=== PATIENT | female | born 1935 | race Caucasian/White ===

== ENCOUNTER 2018-01-26 19:55 | Inpatient (IN) | payer MEDICARE, BC ==
[~2018-01-26] VITALS: Ht 165.1 cm; Wt 77.1 kg
[~2018-01-26 19:55] MED LIST: [UNRECOGNIZED DRUG - REMARK]
[2018-01-26] MEDS ORDERED: ASPIR 8181 MG ORAL (19:56)
[2018-01-26] MEDS ORDERED: CARVEDILOL3.125 MG ORAL (19:56)
[2018-01-26] MEDS ORDERED: DIOVAN80 MG ORAL (19:56)
[2018-01-26] MEDS ORDERED: FUROSEMIDE20 M1 ORAL (19:56)
[2018-01-26] MEDS ORDERED: Sodium Chloride 500ML 500 ML IV ONE (20:22)
[2018-01-26 20:42] LABS: BASOPHILS % (AUTO) 0.8 % (0.0-2.0); EOSINOPHILS % (AUTO) 1.5 % (0.0-3.0); HEMATOCRIT 35.4 % (37.0-47.0); HEMOGLOBIN 11.3 G/DL (12.0-16.0); MEAN CORPUSCULAR VOLUME 79 FL (80-99); MONOCYTES % (AUTO) 6.1 % (1.0-10.0); NEUTROPHILS % (AUTO) 49.5 % (45.0-75.0); PLATELET COUNT 233 K/UL (150-450); RED BLOOD COUNT 4.47 M/UL (4.20-5.40); WHITE BLOOD COUNT 9.3 K/UL (4.8-10.8)
[2018-01-26 20:47] VITALS: BP 159/68
[2018-01-26 20:52] LABS: ANION GAP 8 mmol/L (5-15); BLOOD UREA NITROGEN 15 mg/dL (7-18); CALCIUM 9.1 MG/DL (8.5-10.1); CARBON DIOXIDE 28 MMOL/L (21-32); CHLORIDE 102 MMOL/L (98-107); CREATININE 0.8 MG/DL (0.55-1.30); POTASSIUM 3.8 MMOL/L (3.5-5.1); SODIUM 138 MMOL/L (136-145)
[2018-01-26 21:05] LABS: ALANINE AMINOTRANSFERASE 21 U/L (12-78); ALBUMIN 3.9 G/DL (3.4-5.0); ALBUMIN/GLOBULIN RATIO 1.1 (1.0-2.7); ALKALINE PHOSPHATASE 86 U/L (46-116); ASPARTATE AMINO TRANSFERASE 20 U/L (15-37); BILIRUBIN,TOTAL 0.2 MG/DL (0.2-1.0); CKMB 1.3 NG/ML (0.0-3.6); CREATINE KINASE 68 U/L (26-308)
--- NOTE | 2018-01-26 21:32 | Cardiology Progress Note ---
Assessment/Plan Assessment/Plan ctca neg watch ovef ntei has soem pain on palaption may be ms related [id number] Objective Last 24 Hour Vital Signs Date Time Temp Pulse Resp B/P (MAP) Pulse Ox O2 Delivery O2 Flow Rate FiO2 01/26/18 20:47 63 18 159/68 98 Room Air 01/26/18 20:43 63 18 Room Air 01/26/18 19:50 98.3 78 18 160/98 99 Room Air 98.2 Laboratory Tests Test 01/26/18 20:23 White Blood Count 9.3 K/UL (4.8-10.8) Red Blood Count 4.47 M/UL (4.20-5.40) Hemoglobin 11.3 G/DL (12.0-16.0) L Hematocrit 35.4 % (37.0-47.0) L Mean Corpuscular Volume 79 FL (80-99) L Mean Corpuscular Hemoglobin 25.4 PG (27.0-31.0) L Mean Corpuscular Hemoglobin Concent 32.0 G/DL (32.0-36.0) Red Cell Distribution Width 14.0 % (11.6-14.8) Platelet Count 233 K/UL (150-450) Mean Platelet Volume 9.5 FL (6.5-10.1) Neutrophils (%) (Auto) 49.5 % (45.0-75.0) Lymphocytes (%) (Auto) 42.0 % (20.0-45.0) Monocytes (%) (Auto) 6.1 % (1.0-10.0) Eosinophils (%) (Auto) 1.5 % (0.0-3.0) Basophils (%) (Auto) 0.8 % (0.0-2.0) Sodium Level 138 MMOL/L (136-145) Potassium Level 3.8 MMOL/L (3.5-5.1) Chloride Level 102 MMOL/L (98-107) Carbon Dioxide Level 28 MMOL/L (21-32) Anion Gap 8 mmol/L (5-15) Blood Urea Nitrogen 15 mg/dL (7-18) Creatinine 0.8 MG/DL (0.55-1.30) Estimat Glomerular Filtration Rate mL/min (>60) Glucose Level 90 MG/DL (74-106) Calcium Level 9.1 MG/DL (8.5-10.1) Total Bilirubin 0.2 MG/DL (0.2-1.0) Aspartate Amino Transf (AST/SGOT) 20 U/L (15-37) Alanine Aminotransferase (ALT/SGPT) 21 U/L (12-78) Alkaline Phosphatase 86 U/L (46-116) Total Creatine Kinase 68 U/L (26-308) Creatine Kinase MB 1.3 NG/ML (0.0-3.6) Creatine Kinase MB Relative Index 1.9 Troponin I 0.003 ng/mL (0.000-0.056) Pro-B-Type Natriuretic Peptide 271 pg/mL (0-125) H Total Protein 7.5 G/DL (6.4-8.2) Albumin 3.9 G/DL (3.4-5.0) Globulin 3.6 g/dL Albumin/Globulin Ratio 1.1 (1.0-2.7) ZARA FISH Jan 26, 2018 21:32
--- NOTE | 2018-01-26 22:11 | Emergency Room Report ---
History of Present Illness General Chief Complaint: Chest Pain Source: Patient, EMS Present Illness HPI 82-year-old female presents to ED for evaluation. Per EMS patient noted to have chest pain at home. Started this morning. Substernal, pressure, 7/10, nonradiating. Given aspirin and nitroglycerin by EMS chest pain resolved. Denies chest pain at this time. Denies fevers or chills. Denies cough. Denies shortness of breath. No other aggravating relieving factors. Denies any other associated symptoms Allergies: Coded Allergies: CODEINE (Verified Allergy, Unknown, 01/21/10) Patient History Past Medical History: HTN Past Surgical History: none Pertinent Family History: none Social History: Denies: smoking, alcohol use, drug use Last Menstrual Period: NA Now: No Immunizations: UTD Reviewed Nursing Documentation: PMH: Agreed, PSxH: Agreed Nursing Documentation-PMH Hx Cardiac Problems: Yes Hx Hypertension: Yes Hx Cancer: No Hx Gastrointestinal Problems: Yes Hx Neurological Problems: No Review of Systems All Other Systems: negative except mentioned in HPI Physical Exam Vital Signs Date Time Temp Pulse Resp B/P (MAP) Pulse Ox O2 Delivery O2 Flow Rate FiO2 01/26/18 19:50 98.3 78 18 160/98 99 Room Air 98.2 Sp02 EP Interpretation: reviewed, normal General Appearance: no apparent distress, alert, GCS 15, non-toxic Head: normocephalic, atraumatic Eyes: bilateral eye normal inspection, bilateral eye PERRL ENT: hearing grossly normal, normal pharynx, no angioedema, normal voice Neck: full range of motion, supple/symm/no masses Respiratory: chest non-tender, lungs clear, normal breath sounds, speaking full sentences Cardiovascular #1: regular rate, rhythm, no edema Cardiovascular #2: 2+ carotid (R), 2+ carotid (L), 2+ radial (R), 2+ radial (L) , 2+ dorsalis pedis (R), 2+ dorsalis pedis (L) Gastrointestinal: normal bowel sounds, non tender, soft, non-distended, no guarding, no rebound Rectal: deferred Genitourinary: normal inspection, no CVA tenderness Musculoskeletal: back normal, gait/station normal, normal range of motion, non- tender Neurologic: alert, oriented x3, responsive, motor strength/tone normal, sensory intact, speech normal Psychiatric: judgement/insight normal, memory normal, mood/affect normal, no suicidal/homicidal ideation Reflexes: 3+ bicep (R), 3+ bicep (L), 3+ tricep (R), 3+ tricep (L), 3+ knee (R) , 3+ knee (L) Skin: normal color, no rash, warm/dry, well hydrated Lymphatic: no adenopathy Medical Decision Making Diagnostic Impression: Primary Impression: ACS (acute coronary syndrome) ER Course Hospital Course 82-year-old female presents ED with chest pain resolved after nitroglycerin and aspirin Differential diagnoses include: VA/unstable angina, contusion, muscle strain, PTX, rib fracture Clinical course Patient placed on stretcher. on flour mixer. After initial history and physical I ordered labs, EKG, chest x-ray labs reviewed- no leukocytosis, hb/hct stable, electrolytes ok, trop negative EKG - NSR, no acute ischemic changes interpreted by me Chest x-ray- no acute process Case discussed with PMD Dr Knapp; asked that we admit to Dr Hernandez case discussed with Dr. Hernandez and he agreed to accept the patient to his service for further care and support I. I feel this is a highly complex case requiring extensive working including EKG/Rhythm strip, Xray/CT/US, Blood/urine lab work, repeat exams while in ED, and administration of strong opiates/narcotics for pain control, admission to hospital or close patient follow up. Diagnosis - ACS admitted to telemetry in serious condition Labs Test 01/26/18 20:23 White Blood Count 9.3 K/UL (4.8-10.8) Red Blood Count 4.47 M/UL (4.20-5.40) Hemoglobin 11.3 G/DL (12.0-16.0) Hematocrit 35.4 % (37.0-47.0) Mean Corpuscular Volume 79 FL (80-99) Mean Corpuscular Hemoglobin 25.4 PG (27.0-31.0) Mean Corpuscular Hemoglobin Concent 32.0 G/DL (32.0-36.0) Red Cell Distribution Width 14.0 % (11.6-14.8) Platelet Count 233 K/UL (150-450) Mean Platelet Volume 9.5 FL (6.5-10.1) Neutrophils (%) (Auto) 49.5 % (45.0-75.0) Lymphocytes (%) (Auto) 42.0 % (20.0-45.0) Monocytes (%) (Auto) 6.1 % (1.0-10.0) Eosinophils (%) (Auto) 1.5 % (0.0-3.0) Basophils (%) (Auto) 0.8 % (0.0-2.0) Sodium Level 138 MMOL/L (136-145) Potassium Level 3.8 MMOL/L (3.5-5.1) Chloride Level 102 MMOL/L (98-107) Carbon Dioxide Level 28 MMOL/L (21-32) Anion Gap 8 mmol/L (5-15) Blood Urea Nitrogen 15 mg/dL (7-18) Creatinine 0.8 MG/DL (0.55-1.30) Estimat Glomerular Filtration Rate mL/min (>60) Glucose Level 90 MG/DL (74-106) Calcium Level 9.1 MG/DL (8.5-10.1) Total Bilirubin 0.2 MG/DL (0.2-1.0) Aspartate Amino Transf (AST/SGOT) 20 U/L (15-37) Alanine Aminotransferase (ALT/SGPT) 21 U/L (12-78) Alkaline Phosphatase 86 U/L (46-116) Total Creatine Kinase 68 U/L (26-308) Creatine Kinase MB 1.3 NG/ML (0.0-3.6) Creatine Kinase MB Relative Index 1.9 Troponin I 0.003 ng/mL (0.000-0.056) Pro-B-Type Natriuretic Peptide 271 pg/mL (0-125) Total Protein 7.5 G/DL (6.4-8.2) Albumin 3.9 G/DL (3.4-5.0) Globulin 3.6 g/dL Albumin/Globulin Ratio 1.1 (1.0-2.7) EKG Diagnostic Results Rate: normal Rhythm: NSR ST Segments: no acute changes ASA given to the pt in ED: No - given by ems Rhythm Strip Diag. Results EP Interpretation: yes Rhythm: NSR, no PVC's, no ectopy Chest X-Ray Diagnostic Results Chest X-Ray Diagnostic Results : Chest X-Ray Ordered: Yes # of Views/Limited/Complete: 1 View Indication: Chest Pain EP Interpretation: Yes Interpretation: no consolidation, no effusion, no pneumothorax, no acute cardiopulmonary disease Impression: No acute disease Electronically Signed by: Electronically signed by Ralph Cisneros MD Last Vital Signs Date Time Temp Pulse Resp B/P (MAP) Pulse Ox O2 Delivery O2 Flow Rate FiO2 01/26/18 20:47 63 18 159/68 98 Room Air 01/26/18 19:50 98.3 98.2 Status: improved Disposition: ADMITTED INPATIENT Condition: Serious Referrals: VELASQUEZ KNAPP (PCP) RALPH CISNEROS M.D. Jan 26, 2018 22:11
[2018-01-26 23:27] VITALS: BP 163/80
[2018-01-27] VITALS: BP 175/82
[2018-01-27 04:00] VITALS: BP 154/77
[2018-01-27] MEDS ORDERED: DEXILANT30 MG ORAL (04:15)
[2018-01-27] MEDS ORDERED: ASPIR-LOW81 MG ORAL (04:26)
[2018-01-27] MEDS ORDERED: DIOVAN HCT 80MG1 TAB ORAL (04:26)
--- NOTE | 2018-01-27 06:32 | History and Physical Report ---
DATE OF ADMISSION: 01/26/2018 CARDIOLOGY EVALUATION CONSULTING PHYSICIAN: Luis Hernandez M.D. REFERRING PHYSICIAN: Royce Knapp M.D. REASON FOR REFERRAL: Chest pain. HISTORY OF PRESENT ILLNESS: This is an 82-year-old female, who is usually followed by Dr. Knapp at [facility]. She presented to the hospital because of pain that started yesterday on the left side of the chest lateral to the upper part of the breast. This pain started approximately yesterday and has been constantly present, although it got worse today. She has some shortness of breath. There is no PND or orthopnea. She is able to walk from room to room, but she has not been out of the house so much because of a fall that she sustained some time ago. She has occasional palpitation, occasional dizziness and lightheadedness. PAST MEDICAL HISTORY: Positive for history of combined systolic and diastolic heart failure, depression, degenerative joint disease, essential hypertension, and tremor. She has had cervical joint and sacroiliac joint injections for back pains. She has had depression as well, bilateral extremity edema and cellulitis, anemia, and insomnia. The patient has also kidney stones, osteoarthritis, urinary tract infection, renal cyst, and lymphedema. ALLERGIES: She is allergic to codeine. SOCIAL HISTORY: She does not smoke or drink alcoholic beverages. REVIEW OF SYSTEMS: GASTROINTESTINAL: She has not had any nausea or vomit. No diarrhea. She has occasional constipation. GENITOURINARY: She denies. PULMONARY: She does not have any coughing or wheezing. CONSTITUTIONAL: Negative. NEUROLOGIC: Just generalized weakness. PHYSICAL EXAMINATION: GENERAL: Shows to be elderly female, in no respiratory distress. HEENT: Unremarkable. NECK: Supple. No jugular venous distention. No abdominojugular reflux noted. LUNGS: Clear to auscultation and percussion. CHEST: The patient's chest wall is tender to palpation that seemed to have reproduced on palpation. CARDIAC: S1 is normal. S2 is normal. Regular rate and rhythm. No heaves, thrills, or gallops noted. ABDOMEN: Soft, nontender. Positive bowel sounds. EXTREMITIES: There is no clubbing, cyanosis, nor is there any edema. NEUROLOGICAL: She is awake, alert, responsive, and in no apparent respiratory distress. LABORATORY AND DIAGNOSTIC DATA: Her first set of cardiac enzymes are normal at 0.03. ProBNP 207. Sodium 138, potassium 3.8, chloride 102, bicarbonate 28, BUN of 15, creatinine 0.8, and glucose of 90. Calcium is 9.1. Liver function tests are normal. Albumin 3.9. White count 9.3, hemoglobin 11.3, and platelet count 233,000. The patient's [facility] data was reviewed. The patient has had a CT coronary angiogram that was performed at [facility] in May of 2015 that showed basically no coronary disease at all and normal left ventricular systolic function, normal diastolic chamber dimensions. This is as of May of 2017. Her electrocardiogram is fairly unremarkable. ASSESSMENT AND PLAN: 1. Atypical chest pain. 2. History of systolic and diastolic dysfunction previously. 3. History of depression. 4. Essential hypertension. 5. History of tremor. This patient was seen in cardiac consultation. She has been admitted to the hospital overnight for repeat cardiac enzyme checking and she has had extensive evaluations before. As mentioned, there is a CT coronary angiogram showing no significant flow-limiting disease. In that light if her cardiac enzymes are negative, I will probably not pursue any further. She will be usually getting her usual dose of medications for the time being and her doses of diuretics. No further recommendations have become necessary. Luis Hernandez M.D. DR: ZOFIA JOB#: [id number] CC: REUBEN
[2018-01-27 08:00] VITALS: BP 158/79
[2018-01-27] MEDS ORDERED: Aspirin EC 81mg tab ORAL SCH (09:00)
[2018-01-27] MEDS ORDERED: Heparin 5000 units/ml inj SUBQ SCH (09:00)
[2018-01-27] MEDS ORDERED: Furosemide 80mg tab ORAL SCH (09:00)
[2018-01-27] MEDS ORDERED: Carvedilol 12.5mg tab ORAL SCH (09:00)
--- NOTE | 2018-01-27 09:47 | Diagnostic Imaging Report ---
Indication: Chest pain Technique: One view of the chest Comparison: none Findings: Suboptimal inspiration. There is mild interstitial prominence and central bronchial wall thickening. Pleural spaces are clear. No focal airspace consolidation Impression: Hypoventilatory exam Mild interstitial prominence and central bronchial wall thickening; suspect chronic but mild acute interstitial edema not completely excludable. Correlate with clinical findings. No acute infiltrates
[2018-01-27 12:00] VITALS: BP 136/79
[2018-01-27] MEDS ORDERED: traMADol 50mg tab ORAL PRN (12:15)
[2018-01-27 16:00] VITALS: BP 151/91
--- NOTE | 2018-01-27 16:58 | Discharge Instructions ---
Discharge Instructions Discharge Instructions Special Instructions fu with dr saran moise internits monyn david bang manufacturing plant manager withint hte next 7 days For Congestive Heart Failure Reminder Report to your physician any weight gain of 5 pounds or more in one week. ZARA FISH Jan 27, 2018 16:58
--- NOTE | 2018-01-27 17:00 | Discharge Summary ---
Discharge Summary Hospital Course Date of Admission Jan 26, 2018 at 21:07 Date of Discharge Admitting Diagnosis ACS HPI Bradley Allen is a 82 year old female who was admitted on Jan 26, 2018 at 21:07 for Acute Coronary Syndrome Hospital Course [id number] Discharge Condition Upon Discharge: stable Discharge Disposition Patient was discharged to Discharge Diagnoses: ZARA FISH Jan 27, 2018 17:00
[2018-01-27] MEDS ORDERED: LORazepam 1mg tab ORAL SCH (21:00)
[2018-01-27] MEDS ORDERED: Sertraline 100mg tab ORAL SCH (21:00)
[2018-01-28] MEDS ORDERED: Furosemide 40mg tab ORAL SCH (09:00)
--- NOTE | 2018-01-28 10:45 | Discharge Summary ---
DATE OF ADMISSION: 01/26/2018 DATE OF DISCHARGE: 01/27/2018 DISCHARGE DIAGNOSES: 1. Atypical chest pain, myocardial infarction excluded. 2. History of systolic and diastolic dysfunction and failure previously. 3. History of depression. 4. Hypertension. 5. Tremor. HOSPITAL COURSE: This patient was admitted to the hospital because of an episode of chest pain, myocardial infarction was excluded. The records at [facility] showed that the patient had a recent CT coronary angiography that showed no significant flow-limiting disease. She is doing better this morning. She has had a chance to walk to the bathroom and in the room. She seems to be doing okay, although she has chronic problems with walking even at home. She is afraid to leave her home because of a fall risk and nevertheless she came from home, she will be discharged home with follow up with Dr. Royce Knapp, register in chancery as well as with , her bulb tester as outpatient. I left a message for the patient's daughter and I have discussed the case with the patient's nurse to walk around the nurse station prior to discharge home. Luis Hernandez M.D. DR: LUCIA JOB#: [id number] CC:
--- NOTE | 2018-01-28 11:31 | Cardiology Report ---
APPROVED REPORT EKG Measurement Heart [id number] Sinus rhythm with 1st degree AV block Otherwise normal ECG
== END 2018-01-27 18:45 | disposition home or self-care (01) | DRG 313 ==
LOC: EDBD 19:55 → EMR 20:59 → 2E 21:07 → EDBEDREQ 21:41 → 2E 01-27 03:53
DX: R07.89 Other chest pain (principal); I11.0 Hypertensive heart disease with heart failure; I50.42 Chronic combined systolic (congestive) and diastolic (congestive) heart failure; M19.90 Unspecified osteoarthritis, unspecified site; R25.1 Tremor, unspecified
CPT/HCPCS: 36415; 71045; 80053; 82550; 82553; 83880; 84484; 85025; 93005; 99285